=== PATIENT | female | born 1985 | race Caucasian/White ===

== ENCOUNTER → 2021-10-10 | Outpatient (CLI) | payer BC ==
[~2021-10-10] MED LIST: COLACE 100MG C100 MG PO; IBUPROFEN600 MG PO; LORTAB 5-325 M1 EACH PO; PRENATAL VITAM1 EAC6 PO
== END ==
LOC: US 09:38
DX: R14.0 Abdominal distension (gaseous) (principal); N26.1 Atrophy of kidney (terminal)
CPT/HCPCS: 76700